=== PATIENT | female | born 1960 | race Caucasian/White ===

== ENCOUNTER 2017-09-15 20:23 | Emergency (ER) | payer OTHER ==
[2017-09-15] MEDS ORDERED: Aspirin 81 MG Tab.Chew ONE (20:35)
[2017-09-15] MEDS ORDERED: Aspirin 81 MG Tab.Chew PO ONE (20:47)
--- NOTE | 2017-09-15 21:35 | EDM.PDOC ---
ED HPI GENERAL MEDICAL PROBLEM - General Chief Complaint: Chest Pain Stated Complaint: CHEST PAINS Time Seen by Provider: 09/15/17 21:00 Source of Information: Reports: Patient, Family History Limitations: Reports: No Limitations - History of Present Illness INITIAL COMMENTS - FREE TEXT/NARRATIVE: 56-year-old female who has a right rib fracture 8 days ago has been taking a lot of ibuprofen, tonight was drinking some morning and just over one hour ago developed some substernal chest discomfort that radiated to her left shoulder and arm. No diaphoresis or shortness of breath, no nausea or vomiting. After it was persistent for over 30 minutes she came into the emergency room because she had never had symptoms like this. She has no heart disease history. She has no risk factors, nonsmoker, no family history. She walks regularly without chest pain. Her arm still felt "a little funny" but the chest pain was gone when she arrived to the emergency room. Onset: Sudden Duration: Hour(s): (1-1/2 hours) Location: Reports: Chest, Upper Extremity, Left Severity: Moderate Associated Symptoms: Reports: Chest Pain. Denies: Cough, Diaphoresis, Loss of Appetite, Nausea/Vomiting, Shortness of Breath (She has pleuritic pain with breathing but not short of breath), Weakness Right Chest Pain Score (Numeric/FACES): 2 - Related Data Allergies Allergy/AdvReac Type Severity Reaction Status Date / Time codeine Allergy Dizziness Verified 09/15/17 20:40 Sulfa (Sulfonamide Allergy Rash Verified 09/15/17 20:40 Antibiotics) Home Meds: Home Meds Atenolol 25 mg PO DAILY 09/15/17 [History] Cranberry 500 mg PO DAILY 09/15/17 [History] Gluc 2KCl/Chondr/Rosemarie Hy/Hy Ac [Glucosamine & Chondroitin Cap] 1 tab PO DAILY [History] L.acidoph,Paracasei, B.lactis [Probiotic] 1 each PO DAILY 09/15/17 [History] Multivitamin [Multi-Vitamin Daily] 1 tab PO DAILY 09/15/17 [History] Past Medical History HEENT History: Reports: Head Genitourinary History: Reports: UTI, Recurrent [employer] History: Reports: - Infectious Disease History Infectious Disease History: Reports: Chicken Pox - Past Surgical History Musculoskeletal Surgical History: Reports: Arthroscopic Procedure Social & Family History - Tobacco Use Smoking Status *Q: Never Smoker Second Hand Smoke Exposure: No - Caffeine Use Caffeine Use: Reports: Coffee - Alcohol Use Days Per Week of Alcohol Use: 2 Number of Drinks Per Day: 2 Total Drinks Per Week: 4 - Recreational Drug Use Recreational Drug Use: No ED ROS GENERAL - Review of Systems Review Of Systems: See Below Constitutional: Denies: Fever, Chills Respiratory: Reports: Pleuritic Chest Pain. Denies: Shortness of Breath Cardiovascular: Reports: Chest Pain GI/Abdominal: Reports: No Symptoms : Reports: No Symptoms Musculoskeletal: Reports: Other (Significant right-sided chest wall pain) Skin: Reports: No Symptoms Neurological: Reports: No Symptoms ED EXAM, GENERAL - Physical Exam Exam: See Below Exam Limited By: No Limitations General Appearance: Alert, No Apparent Distress, Other (Fairly comfortable when sitting still but intense pain with movement) Neck: Normal Inspection, Non-Tender Respiratory/Chest: No Respiratory Distress, Lungs Clear Cardiovascular: Regular Rate, Rhythm, Systolic Murmur (Very faint systolic murmur) GI/Abdominal: Soft, Non-Tender Extremities: Normal Inspection. No: Pedal Edema Neurological: Alert, Oriented Psychiatric: Normal Affect, Normal Mood Skin Exam: Warm, Dry EKG INTERPRETATION QRS: Other (Apparent Q wave in lead 3) ST-T: Depressed (Leads V4 and V5 had minimal ST depression) Course - Vital Signs Last Recorded V/S: Last Vital Signs Temp 98.8 F 09/15/17 21:04 Pulse 75 09/15/17 21:04 Resp 19 09/15/17 21:04 BP 181/86 H 09/15/17 21:04 Pulse Ox 98 09/15/17 21:04 - Orders/Labs/Meds Orders: Active Orders 24 hr Category Date Time Status EKG Documentation Completion [RC] ASDIRECTED Care 09/15/17 20:47 Active Chest 2V [CR] Routine Exams 09/15/17 20:47 Taken EKG 12 Lead [EK] Routine Ther 09/15/17 20:47 Ordered Labs: Laboratory Tests 09/15/17 09/15/17 Range/Units 20:47 20:47 WBC 7.0 (4.5-11.0) K/uL RBC 4.25 (3.30-5.50) M/uL Hgb 13.4 (12.0-15.0) g/dL Hct 39.1 (36.0-48.0) % MCV 92 (80-98) fL MCH 32 H (27-31) pg MCHC 34 (32-36) % Plt Count 244 (150-400) K/uL Neut % (Auto) 34 L (36-66) % Lymph % (Auto) 50 H (24-44) % Hardin % (Auto) 10 H (2-6) % Eos % (Auto) 5 H (2-4) % Baso % (Auto) 1 (0-1) % Sodium 143 (140-148) mmol/L Potassium 3.9 (3.6-5.2) mmol/L Chloride 106 (100-108) mmol/L Carbon Dioxide 26 (21-32) mmol/L Anion Gap 10.6 (5.0-14.0) mmol/L BUN 18 (7-18) mg/dL Creatinine 0.9 (0.6-1.0) mg/dL Est Cr Clr Drug Dosing 64.56 mL/min Estimated GFR (MDRD) > 60 (>60) Glucose 103 (74-106) mg/dL Calcium 9.2 (8.5-10.1) mg/dL Total Bilirubin 0.2 (0.2-1.0) mg/dL AST 21 (15-37) U/L ALT 24 (12-78) U/L Alkaline Phosphatase 92 (46-116) U/L Troponin I < 0.017 (0.000-0.056) ng/mL Total Protein 6.5 (6.4-8.2) g/dL Albumin 3.6 (3.4-5.0) g/dL Globulin 2.9 (2.3-3.5) g/dL Albumin/Globulin Ratio 1.2 (1.2-2.2) Meds: Medications Discontinued Medications Generic Name Dose Route Start Last Admin Trade Name Freq PRN Reason Stop Dose Admin Aspirin Confirm 09/15/17 20:35 09/15/17 20:59 Aspirin Administered 09/15/17 20:36 Not Given Dose 324 mg .ROUTE .STK-MED ONE Aspirin 324 mg 09/15/17 20:47 09/15/17 20:59 Aspirin PO 09/15/17 20:48 324 mg ONETIME ONE Administration - Re-Assessments/Exams Free Text/Narrative Re-Assessment/Exam: 09/15/17 21:33 An EKG was done on arrival and was equivocal. She was given 4 low-dose aspirin chewables but no further treatment as her pain was basically resolved. A two- view chest x-ray was obtained which showed the right rib fracture and the small right pleural effusion which she said she had on Sunday. CBC, extended chemistry panel and troponin were obtained. Patient was observed for an hour, pain did not recur in her labs returned all normal including a negative troponin. We discussed options including hospitalization with repeat troponin, but the patient wanted to return for a blood test if possible instead of staying in the hospital. She'll return if chest pain recurs. 09/15/17 21:40 He was agreed with the patient that she'll return at 6 AM for repeat troponin as an outpatient. I'll discuss the results with her at that time. She will return sooner if she develops symptoms or concerns Departure - Departure Time of Disposition: 22:00 Disposition: Home, Self-Care 01 Condition: Good Clinical Impression: Atypical chest pain - Discharge Information Instructions: Nonspecific Chest Pain, [id number] Referrals: PCP,None [Primary Care Provider] - Forms: ED Department Discharge Care Plan Goals: Consider avoiding ibuprofen for the rest of the evening. Return to the emergency room at any time if worsening or concerns. Otherwise return for lab draw around 6 AM, the results will be discussed at that time. - My Orders Last 24 Hours: My Active Orders 09/15/17 20:47 EKG Documentation Completion [RC] ASDIRECTED Chest 2V [CR] Routine EKG 12 Lead [EK] Routine - Assessment/Plan Last 24 Hours: My Active Orders 09/15/17 20:47 EKG Documentation Completion [RC] ASDIRECTED Chest 2V [CR] Routine EKG 12 Lead [EK] Routine
--- NOTE | 2017-09-17 11:02 | CR ---
Heart size within normal limits. Lower right rib fracture posteriorly which appears acute. Trace righ t pleural effusion. No pneumothorax in the right. Blunted left costophrenic angle may indicate tiny p leural effusion versus pleural thickening.
== END 2017-09-15 22:00 | disposition home or self-care (01) ==
LOC: JP.ED 20:23
DX: R07.89 Other chest pain (principal); Z88.2 Allergy status to sulfonamides; Z88.5 Allergy status to narcotic agent; Z79.899 Other long term (current) drug therapy
CPT/HCPCS: 36415; 71046; 80053; 84484; 85025; 93005; 99285; A9270

== ENCOUNTER 2025-01-16 16:57 | Emergency (ER) | payer MEDICARE, OTHER | END 2025-01-16 19:35 | disposition home or self-care (01) | LOC: JP.ED 16:57 | DX: S06.0X0A Concussion without loss of consciousness, initial encounter (principal); Z88.2 Allergy status to sulfonamides; Z88.5 Allergy status to narcotic agent; Z79.899 Other long term (current) drug therapy; Z79.82 Long term (current) use of aspirin; Z79.01 Long term (current) use of anticoagulants; Z86.16 Personal history of COVID-19; W18.39XA Other fall on same level, initial encounter; Y93.89 Activity, other specified | CPT/HCPCS: 70450; 99283 ==